=== PATIENT | female | born 1950 | race Caucasian/White ===

== ENCOUNTER 2017-02-10 17:16 | Inpatient (IN) | payer SELFPAY ==
[2017-02-10] MEDS ORDERED: HYDROmorphONE/DILAUDID 1 MG/ML SYR IVP ONE ×4 (18:35→21:43)
[2017-02-10] MEDS ORDERED: ONDANSETRON 4 MG/2 ML VIAL IVP ONE ×2 (18:35→19:21)
[2017-02-10 18:42] LABS: % IMMATURE GRANULYOCYTES 0.4 % (0.0-1.1); ABSOLUTE IMMATURE GRANULOCYTES 0.02 10^3/uL (0.00-0.10); ADD DIFF? NO; ADD MORPH? NO; ADD SCAN? NO; ATYPICAL LYMPHOCYTE FLAG 10 (0-99); FRAGMENT RBC FLAG 0 (0-99); HEMATOCRIT 44.6 % (38.0-47.0); HEMOGLOBIN 15.3 g/dL (12.6-16.3); LEFT SHIFT FLG 0 (0-99); LIPEMIA HEMOLYSIS FLAG 90 (0-99); MEAN CELL HEMOGLOBIN 32.2 pg (27.9-34.1); MEAN CELL HEMOGLOBIN CONCENTR. 34.3 g/dL (32.4-36.7); MEAN CELL VOLUME 93.9 fL (81.5-99.8); MEAN PLATELET VOLUME 8.7 fL (8.7-11.7); PLATELET CLUMPS FLAG 0 (0-99); PLATELET COUNT 589 10^3/uL (150-400); RED BLOOD CELL COUNT 4.75 10^6/uL (4.18-5.33); RED CELL DISTRIBUTION WIDTH 12.7 % (11.5-15.2)
[2017-02-10 18:51] LABS: ALANINE AMINOTRANSFERASE 23 IU/L (9-52); ALBUMIN 3.3 g/dL (3.5-5.0); ALKALINE PHOSPHATASE 136 IU/L (38-126); ANION GAP 13 mEq/L (8-16); ASPARTATE AMINOTRANSFERASE 25 IU/L (14-46); BILIRUBIN,TOTAL 0.4 mg/dL (0.1-1.4); BILIRUBIN-CONJUGATED 0.4 mg/dL (0.0-0.5); CALCIUM 9.1 mg/dL (8.5-10.4); CARBON DIOXIDE 25 mEq/l (22-31); CHLORIDE 99 mEq/L (97-110); CREATININE 0.7 mg/dL (0.6-1.0); GLOMERULAR FILTRATION RATE > 60; GLUCOSE 92 mg/dL (70-100); SODIUM 137 mEq/L (134-144); TOTAL PROTEIN 6.1 g/dL (6.3-8.2)
--- NOTE | 2017-02-10 19:02 | EDPHY ---
H & P Time Seen by Provider: 02/10/17 18:37 HPI/ROS: CHIEF COMPLAINT: Severe abdominal pain HISTORY OF PRESENT ILLNESS: This patient is a 66 year old female arriving with her daughters complaining of severe abdominal pain and distention. Onset of gradually worsening abdominal pain and distention over the last year. Initial evaluation for the abdominal pain was in an emergency department in her hometown of [place] 01/29/17. She had a CT scan at that time, suspicious for metastatic ovarian cancer. She was placed on Dilaudid for pain control. She is now in [place] under the care of Dr. Herrera, oncologist, and has seen him once. She has also visited a gynecologic oncologist, Dr. Edwards, for surgical consult, and is scheduled for a laparoscopic procedure 02/19/17. She has had markedly increased pain and distention over the past 72 hours, and has been unable to eat or drink due to vomiting. She has had multiple episodes of diarrhea as well, and inability to control her bowels. REVIEW OF SYSTEMS: Constitutional: No fever, no chills Eyes: No visual changes ENT: No sore throat Respiratory: No cough, no shortness of breath Cardiac: No chest pain Genitourinary: No hematuria, no dysuria Musculoskeletal: No leg pain or swelling Skin: No rash Neurological: No headache Psychiatric: Feels anxious Past Medical/Surgical History: Hypothyroidism Social History: Daughters at bedside. Lives in [place]. Smoking Status: Former smoker Physical Exam: General Appearance: Alert, appearsin pain Eyes: Pupils equal and round, no conjunctival pallor or injection ENT, Mouth: Mucous membranes moist Neck: Normal inspection Respiratory: Lungs are clear to auscultation Cardiovascular: Regular rate and rhythm Gastrointestinal: Tense ascites, diffuse abdominal tenderness Neurological: A&O, nonfocal exam Skin: Warm and dry, no rash Extremities: Nontender, no pedal edema Psychiatric: Mood and affect normal Constitutional: Initial Vital Signs Temperature (C) 36.7 C 02/10/17 17:33 Heart Rate 84 02/10/17 17:33 Respiratory Rate 16 02/10/17 17:33 Blood Pressure 134/78 H 02/10/17 17:33 O2 Sat (%) 93 02/10/17 17:33 O2 Delivery Mode Nasal Cannula O2 (L/minute) 2 Allergies/Adverse Reactions: Sulfa (Sulfonamide Antibiotics) Allergy (Verified 02/10/17 17:36) sulfamethoxazole [From Bactrim] Allergy (Verified 02/10/17 17:36) trimethoprim [From Bactrim] Allergy (Verified 02/10/17 17:36) Home Medications: Medication Instructions Recorded oxyCODONE/APAP 5/325 [Percocet 1 tab PO Q6H PRN 02/10/17 5/325 (*)] Medical Decision Making - Diagnostics Imaging Results: Imaging Impressions Abdomen CT 02/10/17 19:07 Impression: 1. Large volume abdominal and pelvic ascites. 2. Extensive mesenteric and pelvic wall metastatic implantation consistent with metastatic ovarian malignancy. There is a nodular right lower quadrant mass probably a large metastatic deposit. As clinically indicated, additional staging could be obtained with PET CT. 3. See above report for additional findings. Results called and discussed with Lona Armando M.D., on February 10, 2017 at 2044. E:amm Imaging: Discussed imaging studies w/ call specialist Radiologist ED Course/Re-evaluation: This patient presents with severe abdominal pain and newly diagnosed metastatic cancer. Likely ovarian cancer, though she has not had a tissue diagnosis. Given worsening abdominal pain, a repeat CT scan of the abdomen pelvis was ordered. Dilaudid 1 mg IV and Zofran 4 mg IV given. A repeat Dilaudid dose was given because of ongoing pain. After the 2nd mg Dilaudid, she feels much more comfortable. 20:[address] Sullivan, radiologist, regarding patient's CT. CT scan results discussed with the patient. She continues to feel better after IV Dilaudid. Will benefit from ultrasound-guided paracentesis for diagnostic and therapeutic purposes in the morning. 20:[address] Brown, hospitalist. He accepts admission for severe abdominal pain, metastatic cancer. Differential Diagnosis: The differential diagnosis for the patient's abdominal pain included but was not limited to metastatic ovarian cancer. - Data Points Laboratory Results: Laboratory Results 02/10/17 18:18 02/10/17 18:18 Medications Given: Discontinued Medications Hydromorphone HCl (Dilaudid) 1 mg IVP EDNOW ONE Stop: 02/10/17 18:36 Last Admin: 02/10/17 18:43 Dose: 1 mg Hydromorphone HCl (Dilaudid) 0.5 mg IVP EDNOW ONE Stop: 02/10/17 19:16 Last Admin: 02/10/17 19:21 Dose: 0.5 mg Hydromorphone HCl (Dilaudid) 0.5 mg IVP EDNOW ONE Stop: 02/10/17 20:04 Last Admin: 02/10/17 20:06 Dose: 0.5 mg Hydromorphone HCl (Dilaudid) 1 mg IVP EDNOW ONE Stop: 02/10/17 21:44 Last Admin: 02/10/17 21:50 Dose: 1 mg Hydromorphone HCl (Dilaudid) 0.2 - 0.4 mg IVP Q4HRS PRN PRN Reason: Pain, Severe Unable to Take PO Stop: 02/20/17 22:20 Last Admin: 02/10/17 22:38 Dose: 0.4 mg Ondansetron HCl (Zofran) 4 mg IVP EDNOW ONE Stop: 02/10/17 18:36 Last Admin: 02/10/17 18:42 Dose: 4 mg Ondansetron HCl (Zofran) 4 mg IVP EDNOW ONE Stop: 02/10/17 19:22 Last Admin: 02/10/17 19:23 Dose: 4 mg Departure - Departure Disposition: [facility] Inpatient Acute Clinical Impression: Metastatic cancer Abdominal pain Qualifiers: Abdominal location: generalized Qualified Code(s): R10.84 - Generalized abdominal pain Condition: Fair Report Scribed for: Lona Armando Report Scribed by: Yazmin Sanchez Date of Report: 02/10/17 Time of Report: 18:55 Physician Review and Approval Statement: 02/10/17 18:54 Portions of this note were transcribed by a medical record transcriber. I personally performed a history, physical exam, medical decision making, and confirmed accuracy of information the transcribed note.
[2017-02-10] MEDS ORDERED: ONDANSETRON 4 MG/2 ML VIAL ONE (19:20)
[2017-02-10] MEDS ORDERED: IOPAMIDOL (ISOVUE-300) 100 ML BTL ONE (19:25)
[2017-02-10] MEDS ORDERED: ACETAMINOPHEN 325 MG TAB PO PRN (22:21)
[2017-02-10] MEDS ORDERED: ONDANSETRON 4 MG/2 ML VIAL IVP PRN (22:21)
[2017-02-10] MEDS ORDERED: HYDROmorphONE/DILAUDID 1 MG/ML SYR IVP PRN (22:21)
[2017-02-10] MEDS ORDERED: PROMETHAZINE HCL 25 MG/ML INJ IVP PRN (22:21)
[2017-02-10] MEDS ORDERED: ONDANSETRON DISINTEGRATING 4 MG TAB PO PRN (22:21)
--- NOTE | 2017-02-10 23:15 | GHP ---
[f rep st] HISTORY AND PHYSICAL DATE OF ADMISSION: 02/10/2017 HISTORY OF PRESENT ILLNESS: The patient is a 66-year-old female, with a history of likely ovarian c ancer, who presents to the hospital with increasing abdominal pain and nausea. It sounds like she h as had ongoing abdominal pain for about a year. She had a colonoscopy in November, in [place] where she lives, which showed a polyp that was noncancerous. Abdominal pain continued and developed increasin g abdominal girth, and she had a CAT scan performed on January 29, showing imaging findings of typical peritoneal carcinomatosis, masslike appearance, to the omentum adjacent to hepatic and splenic flex ures, previous history of hysterectomy. She thought about what to do and was referred ultimately to [place] where she saw Dr. Herrera, who told her she likely had ovarian cancer. Further workup has been planned, but she presents tonight with worsening symptoms of abdominal pain, increasing abdomin al girth and distention, and some nausea and vomiting, poor p.o. intake. She has been vomiting as well. No melena. No bright red blood per rectum. REVIEW OF SYSTEMS: A complete 10-point review of systems conducted, negative except as noted in the HPI. PAST MEDICAL HISTORY: Really none, other than this ovarian cancer. ALLERGIES: Sulfa. SOCIAL HISTORY: She is a former tobacco smoker, but quit a few months ago. Drank alcohol heavily i n the past, but has not drunk in 7 years. Lives in [place]. FAMILY HISTORY: Negative for ovarian cancer. PHYSICAL EXAMINATION: VITAL SIGNS: Temperature 36.7, blood pressure 134/78, pulse 84, breathing at 16 times a minute, 93% on room air. GENERAL: No acute distress. HEENT: Sclerae anicteric. Orop harynx clear. Mucous membranes moist. NECK: Supple without lymphadenopathy or JVD. LUNGS: Clear to auscultation bilaterally. HEART: S1, S2. ABDOMEN: The patient has tense ascites and it is fi rm. Bowel sounds are hypoactive. There is no rebound or guarding. No Rubin sign. EXTREMITIES: Lower extremities without edema. Calves nontender. SKIN: Without rash. NEUROLOGIC: Nonfocal. LABORATORY DATA: White count 5, hematocrit 45, platelets are 589,000. Sodium 137, potassium 4.0, c hloride 99, bicarb 25, BUN 7, creatinine 0.7. LFTs normal. Lipase is normal. Abdominal CT reviewe d/interpreted by me, shows large amount of ascites. extensive mesenteric and pelvic wall metastatic implantation consistent with metastatic ovarian malignancy, nodular right lower quadrant mass. I have discussed the case with Vijay Fried PA-C and Dr. Rosen. ASSESSMENT/PLAN: This is a 66-year-old female, who presents with increasing abdominal girth that is consistent with ovarian cancer. 1. Ovarian cancer. The patient needs a tissue diagnosis. I have ordered a paracentesis cytology. There is a high rate of false positive, but if it is positive, it can help avoid further invasive p rocedures. There has been some discussion of her being referred to a surgeon. I will leave that to the discretion of Dr. Herrera. 2. Nausea, vomiting. We will add Phenergan and Zofran. 3. Pain. We will add some IV Dilaudid. She may be a candidate, when her nausea is improved, for l alex-acting narcotics. 4. Prophylaxis, high risk. Start low-molecular heparin. I have written for her start on the given the need for paracentesis tomorrow. DISPOSITION: Inpatient status. /[id number]/MODL
[2017-02-10 23:20] LABS: INR 0.95 (0.83-1.16); PROTIME(PATIENT) 12.6 SEC (12.0-15.0)
[2017-02-10] MEDS: oxyCODONE IR 5 MG TAB PO PRN (23:20)
[2017-02-11] MEDS ORDERED: NALOXONE HCL 0.4 MG/ML INJ IVP PRN (00:28)
[2017-02-11] MEDS: HYDROmorphONE/DILAUDID 6 MG/30 ML PCA IV PRN ×4 (02:42→23:02)
[2017-02-11] MEDS ORDERED: LIDOCAINE 1% 300 MG/30 ML SDV ONE (10:00)
[2017-02-11] MEDS ORDERED: ALBUMIN 25% 100 ML IV ONE (12:30)
[2017-02-11 13:03] LABS: GLUCOSE, PERITONEAL FLUID 102 mg/dL (55-113)
--- NOTE | 2017-02-11 16:04 | HOSPPROG ---
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 This is sent for cytology. I reviewed her case in detail with Dr. Pedro Kerr as well as with the patient and her daughter at the bedside. Patient has been referred to a gynecologic oncology surgeon in [place]. They have made plans to arrange for surgery, probably later this week but the date and time are still pending. At this point the patient remains on narcotic analgesics by ASSIGNMENT AGENT here. Will continue to treat her here and monitor to be sure she has no complications of her paracentesis. Will use DVT prophylaxis since and encourage ambulation. It is possible she may be able to discharge tomorrow or the next day and go home before surgery, however depending on how she progresses in the timing of her surgery she may require transfer from this hospital to the hospital where she will have surgery. I answered number of questions for the patient and her daughter to their satisfaction. PLANS: -continued management for now with ASSIGNMENT AGENT narcotic -encourage ambulation -diet as tolerated, antiemetics as needed -we are waiting to hear from her surgeon as to precisely when her surgery will be, will consider possible discharge home before surgery versus transfer to the operating hospital SUBJECTIVE: Notably less pain after her paracentesis but still has significant abdominal pain requiring narcotic OBJECTIVE Vitals reviewed: Stable without fever Exam: alert oriented skin warm dry color ok resps not labored lungs clear BSs heart regular abd soft less distended and with less tenderness, bowel sounds present, no peritoneal signs limbs warm, no edema iv site ok Objective: Vital Signs Temp Pulse Resp BP Pulse Ox 36.6 C 75 18 101/52 L 98 02/11/17 07:56 02/11/17 15:53 02/11/17 15:53 02/11/17 15:53 02/11/17 15:53 Microbiology 02/11/17 08:02 Gram Stain - Final Peritoneal Fluid - Aspirate 02/10/17 02/11/17 02/12/17 06:59 06:59 06:59 Intake Total 600 Output Total 500 Balance 100 PT 12.6 SEC (12.0-15.0) 02/10/17 22:56 INR 0.95 (0.83-1.16) 02/10/17 22:56 ICD10 Worksheet Patient Problems: Problems Problem Status Onset Abdominal pain Acute Metastatic cancer Acute
[2017-02-11] MEDS ORDERED: GOLYTELY 4000 ML BTL PO ONE (16:22)
[2017-02-11] MEDS ORDERED: NEOMYCIN SULF 500 MG TAB PO ONE ×3 (17:00→23:55)
--- NOTE | 2017-02-11 20:58 | GCON ---
[f rep st] CONSULTATION HISTORY OF PRESENT ILLNESS: The patient is a 66-year-old female, who has been having some abdominal symptoms for the last 4-5 months characterized by cramping abdominal distention. Colonoscopy showe d a polyp. She eventually presented to the emergency room in [place] at [facility] a couple of weeks ago, and a CT scan showed evidence of peritoneal carcinomatosis with a moderate amount of asci andre. There was nodular omental thickening, and mass-like appearance to the amantadine. There is a small sub cm pulmonary nodule noted. She was seen by my partner, Dr. Herrera, and it was felt to medley ve a presentation worrisome for ovarian carcinoma or perhaps a primary peritoneal malignancy. CEA w as normal at 2.01, and CA-125 was elevated at 2,290. She was referred to Dr. Keerthi Edwards, who s aw her last week, and is attempting to schedule her for exploration and debulking surgery. She, how ever, had increasing pain and presented to the ER here at [facility] last night. A CT scan s howed a large volume of abdominal and pelvic ascites. There was extensive mesenteric and pelvic wal l metastatic implantation consistent with metastatic ovarian malignancy. There is nodular right low er quadrant mass, probably a large metastatic deposit. She underwent a 4 L paracentesis this mornin g, and her pain is significantly better. PAST MEDICAL HISTORY: Generally unremarkable. She is a former smoker. Former fairly heavy alcohol user. FAMILY HISTORY: Noncontributory. REVIEW OF SYSTEMS: Otherwise, negative. PHYSICAL EXAM: GENERAL: She is a pleasant female. VITAL SIGNS: Blood pressure 94/45, heart rate 78, O2 saturation 98 on 3 L. HEENT: She is not icteric. I detect no adenopathy. LUNGS: Clear to auscultation and percussion. CARDIAC: Unremarkable. ABDOMEN: Normal bowel sounds with perhaps a slight fluid wave. EXTREMITIES: No edema. NEUROLOGIC: Nonfocal. LABORATORY DATA: White count 5,000, hemoglobin 15.3, hematocrit 44.6, platelets 589,000, alkaline p hosphatase 136, total protein 6.1, albumin 3.3. CA-125 last night was 1,970. IMPRESSION: The patient with abdominal carcinomatosis, presentation worrisome for ovarian malignanc y. She is better after 4 L paracentesis. PLAN: Surgical exploration and consideration of debulking. I discussed the case with Dr. Edwards , who is attempting to schedule her surgery for later this week, either 02/13 or Friday. She will contact me as to when she can schedule the surgery. We will probably be able to disch arge the patient assuming her pain is under good control. /[id number]/MODL
[2017-02-12] MEDS: HYDROmorphONE/DILAUDID 6 MG/30 ML PCA IV PRN (05:26)
--- NOTE | 2017-02-12 06:12 | PDDCSUM ---
Discharge Summary Discharge Summary: DISCHARGE DIAGNOSES: -abdominal pain caused by cancer -malignant peritioneal effusion -suspected metastatic ovarian carcinoma' PROCEDURES: -paracentesis of 4.7 L ascites fluid COMPLICATIONS: none HOSPITAL COURSE: This patient who has known malignant appearing peritoneal implants and ongiong abdominal pain had been referred to a gyencologic surgeon. However before her surgery could be done, she presented to our ER here with worsening abdominal pain and distension. She had large volume ascites with numerous peritioneal masses. She underwent paracentesis without complication lessening her pain but still required a QUALITY ASSOCIATE for pain management. We were in contact with her surgeon, and it was elected to discharge her so that she could go to her elective surgery at an outside hospital which was to occur in the early afternoon on the day of this discharge. She was in stable condition for discharge. She was felt to be stable medically for her planned laparoscopic surgery. Her daughter was to drive her to the outside hospital.
[2017-02-12 08:49] VITALS: BP 123/64; PULSE 81; RESP 18; TEMP 97.5; O2SAT 97
[2017-02-12] MEDS: oxyCODONE IR 5 MG TAB PO PRN (09:00)
[2017-02-12] MEDS ORDERED: ENOXAPARIN 40 MG/0.4 ML SYR SC SCH (09:00)
== END 2017-02-12 09:30 | disposition home or self-care (01) | DRG 755 ==
LOC: F1N 22:16
PROVIDERS: ADMIT Internal Medicine; ATTEND Internal Medicine
PROC: 0W9G3ZX Drainage of Peritoneal Cavity, Percutaneous Approach, Diagnostic (ICD-10-PCS; principal; 2017-02-11)
DX: C56.9 Malignant neoplasm of unspecified ovary (principal); C78.6 Secondary malignant neoplasm of retroperitoneum and peritoneum; C79.89 Secondary malignant neoplasm of other specified sites; Z87.891 Personal history of nicotine dependence
CPT/HCPCS: 86301-90; 86304-90; 96374; J1170; J2405; J2550; P9047; Q9967

== ENCOUNTER 2017-08-02 16:11 | Emergency (ER) | payer OTHER ==
[2017-08-02 16:19] VITALS: TEMP 97.7
--- NOTE | 2017-08-02 16:34 | EDPHY ---
H & P Stated Complaint: RUQ painx 2 days;sched for surgery Thurs (oophrectomies) HPI/ROS: CHIEF COMPLAINT: Abdominal pain HISTORY OF PRESENT ILLNESS: This patient is a 67 year old female with history of metastatic ovarian cancer , diagnosed last year, complaining of right-sided upper abdominal pain. One month ago, she completed a course of six chemotherapy treatments. She is scheduled to undergo a bilateral oophorectomy next week with Dr. Millan in [place]. Yesterday, she woke up with right-sided upper abdominal pain. She visited a friend's house to go for a walk but her pain increased, preventing her from completing her regular activities. She states it "feels likes somebody may have stabbed me, but there is no wound". She endorses nausea for the past week, which she states is unusual as she did not have this after her chemotherapy was completed. She was able to eat today, and eating does not make her discomfort better or worse. She denies fever, diarrhea, or dysuria. Her last bowel movement was yesterday and was normal, no blood. At a prior admission here in January,, she underwent paracentesis of ascitic fluid. She does not think that she has had reaccumulation of fluid. She has been short of breath since chemotherapy began, but no changes with current symptoms. She denies sore throat, cough, recent illness, or other associated symptoms. REVIEW OF SYSTEMS: A ten point review of systems was performed and is negative with the exception of the items mentioned in the HPI. Past medical history: Ovarian cancer. Past surgical history: Hysterectomy. Family history: Noncontributory. Social history: Current tobacco use, 1/2 pack per day. Occasional alcohol use. General Appearance: Alert. Vital signs reviewed. Eyes: Pupils equal and round, no conjunctival injection, no discharge. Anicteric. ENT, Mouth: Mucous membranes are moist, no oropharyngeal erythema or edema. Neck: No lymphadenopathy, supple. Respiratory: Lungs are clear to auscultation; no wheezes, rales, or rhonchi. Cardiovascular: Regular rate and rhythm; no murmur, rub, or gallop. Gastrointestinal: Left lower quadrant, right upper quadrant, and midepigastric tenderness. No guarding. Abdomen is soft, no masses or organomegaly, bowel sounds normal. Skin: Warm and dry, no rashes on exposed skin, normal color. Back: Nontender to palpation over the thoracolumbar spine. No CVAT. Extremities: No lower extremity edema, no calf tenderness or swelling. Neurological: Alert and oriented. Moving all four extremities easily and equally. Psychiatric: Normal affect. - Personal History Current Tetanus Diphtheria and Acellular Pertussis (TDAP): Yes - Medical/Surgical History Hx Asthma: No Hx Chronic Respiratory Disease: No Hx Diabetes: No Hx Cardiac Disease: No Hx Renal Disease: No Hx Cirrhosis: No Hx Alcoholism: Yes Hx HIV/AIDS: No Hx Splenectomy or Spleen Trauma: No Other PMH: abdominal tumors,. hypothyroid, alcoholism, fibromyalgia - Social History Smoking Status: Former smoker Constitutional: Initial Vital Signs Temperature (C) 36.5 C 08/02/17 16:16 Heart Rate 76 08/02/17 16:16 Respiratory Rate 18 08/02/17 16:16 Blood Pressure 122/74 H 08/02/17 16:16 O2 Sat (%) 97 08/02/17 16:16 O2 Delivery Mode Room Air Allergies/Adverse Reactions: Sulfa (Sulfonamide Antibiotics) Allergy (Intermediate, Verified 08/02/17 16:20) rash,swelling sulfamethoxazole [From Bactrim] Allergy (Intermediate, Verified 08/02/17 16:20) rash,swelling trimethoprim [From Bactrim] Allergy (Verified 08/02/17 16:20) rash,swelling Home Medications: Medication Instructions Recorded Escitalopram Oxalate [Lexapro] 10 mg PO 08/02/17 Levothyroxine [Synthroid 88 mcg 88 mcg PO DAILY06 08/02/17 (*)] clonazePAM [Klonopin (*)] 0.5 mg PO 08/02/17 traZODone [traZODONE 50MG (*)] 50 mg PO HS 08/02/17 Medical Decision Making - Diagnostics Imaging: Discussed imaging studies w/ body recall instructor Radiologist ED Course/Re-evaluation: 67 year old female with history of metastatic ovarian cancer presents with right upper quadrant abdominal pain onset yesterday. Exam reveals left lower quadrant, right upper quadrant, and midepigastric tenderness. Plan for US abdomen to assess gallbladder. Plan for labs including CBC, BMP, liver, lipase, UA. Plan to administer 75mcg Fentanyl for pain relief. Reviewed laboratory studies. Liver, pancreas, gallbladder labs within normal limits with the exception of very slight elevation of her AST of 53.. Low WBC at 3.24. Administered an additional 75mcg Fentanyl. 18:[address] Stark, radiologist. US abdomen negative for acute process including cholecystitis. There is a trace of free fluid near the gallbladder. 18:54 Reassessed patient. Discussed US and laboratory results. She continues to feel pain in her right upper quadrant. When I press in her lower left quadrant, she continues to feel tender and states the pain radiates up towards her epigastric region. Discussed risks and benefits of CT for further evaluation. She states she had a CT three weeks ago at [facility]. She is aware of mesenteric seeding that has been seen on that CT scan. She denies history of reflux or ulcers. Plan to administer 0.5mg IV Dilaudid for symptom relief. The patient agrees to proceed with CT for further evaluation. Reviewed CT report from 07/02/17. 20:[address] Stark, radiologist. CT abdomen/pelvis shows nodular mesenteric masses similar from her study 07/02/17. No significant ascites. 20:15 Reassessed patient. Discussed imaging results. Plan to discharge home in good condition. She will proceed with her surgery next as scheduled. She discontinued her hydrocodone three days ago, and will resume this for pain control. She understands that the etiology of her pain has not been discovered. She will follow up with her oncologist, Dr. Herrera, or her surgeon , Dr. Millan, for further evaluation. Return precautions discussed. She is comfortable with this plan. Differential Diagnosis: Abdominal pain including but not limited to SBO, tumor progression, appendicitis , cholecystitis, gastritis/peptic ulcer disease, ureterolithiasis, and urinary tract infection. - Data Points Laboratory Results: Laboratory Results 08/02/17 16:40 08/02/17 16:40 Medications Given: Discontinued Medications Hydrocodone Bitart/Acetaminophen ([place]n 5/325mg Prepack#6) 1 btl TAKEHOME EDNOW ONE Stop: 08/02/17 20:20 Last Admin: 08/02/17 20:24 Dose: 1 btl Fentanyl (Sublimaze) 75 mcg IVP EDNOW ONE Stop: 08/02/17 16:54 Last Admin: 08/02/17 17:07 Dose: 75 mcg Fentanyl (Sublimaze) 75 mcg IVP EDNOW ONE Stop: 08/02/17 18:03 Last Admin: 08/02/17 18:09 Dose: 75 mcg Hydromorphone HCl (Dilaudid) 0.5 mg IVP EDNOW ONE Stop: 08/02/17 19:15 Last Admin: 08/02/17 19:23 Dose: 0.5 mg Departure - Departure Disposition: Home, Routine, Self-Care Clinical Impression: Abdominal pain Qualifiers: Abdominal location: upper abdomen, unspecified Qualified Code(s): R10.10 - Upper abdominal pain, unspecified Condition: Good Instructions: Abdominal Pain (ED) Additional Instructions: 1. Resume taking Hydrocodone as we discussed. 2. Follow up with your oncologist for further evaluation. 3. Return to the emergency department for uncontrollable pain, fever, intractable vomiting, or other worsening of condition. Referrals: Rome Herrera MD [Medical Doctor] - As per Instructions Report Scribed for: Sidra Hill Report Scribed by: Yazmin Sanchez Date of Report: 08/02/17 Time of Report: 18:25 Physician Review and Approval Statement: 08/02/17 16:34 Portions of this note were transcribed by the medical consultant. I, Dr. Sidra Hill, personally performed the history, physical exam, and medical decision- making; and confirmed the accuracy of the information in the transcribed note.
[2017-08-02] MEDS ORDERED: fentaNYL 100 MCG/2 ML INJ IVP ONE ×2 (16:53→18:02)
[2017-08-02 16:58] LABS: PLATELET COUNT 219 10^3/uL (150-400)
[2017-08-02 17:44] VITALS: RESP 16
[2017-08-02] MEDS ORDERED: HYDROmorphONE/DILAUDID 1 MG/ML INJ IVP ONE (19:14)
[2017-08-02] MEDS ORDERED: IOPAMIDOL (ISOVUE-300) 100 ML BTL ONE (19:21)
[2017-08-02] MEDS ORDERED: HYDROCOD/APAP 5/325 PREPACK#6 BTL TAKEHOME ONE (20:19)
[2017-08-02 20:28] VITALS: BP 116/61; PULSE 57; O2SAT 99
== END 2017-08-02 20:28 | disposition home or self-care (01) ==
DX: R10.11 Right upper quadrant pain (principal); Z85.43 Personal history of malignant neoplasm of ovary; Z90.710 Acquired absence of both cervix and uterus; Z87.891 Personal history of nicotine dependence
CPT/HCPCS: 74177; 76705; 96374; 96375; 99285; J1170; J3010; Q9967

== ENCOUNTER → 2017-10-23 | Outpatient (CLI) | payer OTHER | LOC: FIMAGING 16:10 | PROVIDERS: ATTEND Nurse Practitioner | DX: R79.89 Other specified abnormal findings of blood chemistry (principal); N28.1 Cyst of kidney, acquired; C56.9 Malignant neoplasm of unspecified ovary; Z92.21 Personal history of antineoplastic chemotherapy ==

== ENCOUNTER 2018-04-17 05:48 | Observation (INO) | payer OTHER ==
[2018-04-17] MEDS ORDERED: ceFAZolin 2 GM/DEXTROSE 100 ML IV ONE (06:02)
[2018-04-17] MEDS ORDERED: LR 1,000 ML IV ONE (06:03)
[2018-04-17] MEDS ORDERED: LIDOCAINE 1% 2 ML INJ ID PRN (06:03)
--- NOTE | 2018-04-17 06:49 | PDANEPAE ---
ANE History of Present Illness open ventral hernia repair ANE Past Medical History - Cardiovascular History Hx Hypertension: No Hx Arrhythmias: No Hx Chest Pain: No Hx Coronary Artery / Peripheral Vascular Disease: No Hx CHF / Valvular Disease: No Hx Palpitations: No - Pulmonary History Hx COPD: No Hx Asthma/Reactive Airway Disease: No Hx Recent Upper Respiratory Infection: No Hx Oxygen in Use at Home: No Hx Sleep Apnea: No Sleep Apnea Screening Result - Last Documented: Negative - Neurologic History Hx Cerebrovascular Accident: No Hx Seizures: No Hx Dementia: No Neurologic History Comment: PERIPHERAL NEUROPATHY - Endocrine History Hx Diabetes: No Endocrine History Comment: HYPOTHYROID - Renal History Hx Renal Disorders: Yes Renal History Comment: UNK KIDNEY CONDITION - 2-3 MOS AGO IN HOSP X 7 DAYS IN [facility] - WAS ON CHEMO AT THE TIME AND H&P FROM [facility] STATES ACUTE RENAL INSUFFICIENCY - Liver History Hx Hepatic Disorders: No - Neurological & Psychiatric Hx Hx Neurological and Psychiatric Disorders: Yes Neurological / Psychiatric History Comment: ANXIETY/DEPRESSION - Cancer History Hx Cancer: Yes Cancer History Comment: OVARIAN CA - Congenital Disorder History Hx Congenital Disorders: No - GI History GERD: no Hx Gastrointestinal Disorders: No - Other Health History Other Health History: ANEMIA WITH CHEMO - ORAL CHEMO UNTIL 04/05/18 - Chronic Pain History Chronic Pain: No - Surgical History Prior Surgeries: HYSTERECTOMY/BSO. OOPHERECTOMY ANE Review of Systems Review of Systems: - Exercise capacity METS (RN): 4 METS ANE Patient History - Allergies Allergies/Adverse Reactions: Sulfa (Sulfonamide Antibiotics) Allergy (Intermediate, Verified 08/02/17 16:20) rash,swelling sulfamethoxazole [From Bactrim] Allergy (Intermediate, Verified 08/02/17 16:20) rash,swelling trimethoprim [From Bactrim] Allergy (Verified 08/02/17 16:20) rash,swelling - Home Medications Home medications: home medication list seen and reviewed Home Medications: Escitalopram Oxalate [Lexapro] 10 mg PO 08/02/17 [Last Taken 04/16/18 09:00] Levothyroxine [Synthroid 88 mcg (*)] 88 mcg PO DAILY06 08/02/17 [Last Taken 09:00] clonazePAM [Klonopin (*)] 0.5 mg PO 08/02/17 [Last Taken 04/16/18 21:00] traZODone [traZODONE 50MG (*)] 50 mg PO HS 08/02/17 [Last Taken 04/16/18 21:00] Fentanyl 04/17/18 [Last Taken 04/13/18] - NPO status NPO Since - Liquids (Date): 04/17/18 NPO Since - Liquids (Time): 05:00 NPO Since - Solids (Date): 04/16/18 NPO Since - Solids (Time): 18:00 - Anes Hx Anes Hx: no prior problems - Smoking Hx Smoking Status: Former smoker - Family Anes Hx Family Hx Anesthesia Complications: NEG ANE Labs/Vital Signs - Vital Signs Height: 165.1 cm Weight: 54.431 kg ANE Physical Exam - Airway Neck exam: FROM Mallampati Score: Class 1 Mouth exam: normal dental/mouth exam - Pulmonary Pulmonary: no respiratory distress - Cardiovascular Cardiovascular: regular rate and rhythym - ASA Status ASA Status: II ANE Anesthesia Plan Anesthesia Plan: general endotracheal anesthesia
[2018-04-17] MEDS ORDERED: PROPOFOL 200 MG/20 ML VIAL ONE (07:00)
[2018-04-17] MEDS ORDERED: fentaNYL 100 MCG/2 ML INJ ONE ×3 (07:00→08:59)
[2018-04-17] MEDS ORDERED: MIDAZOLAM 2 MG/2 ML VIAL IVP ONE (07:04)
--- NOTE | 2018-04-17 07:06 | PDHPUP ---
History & Physical Update H&P update statement: This history and physical update is based on an assessment of the patient which was completed after admission or registration (within 24 hours), but prior to the surgery/procedure. H&P update: H&P reviewed & patient examined, no change in patient's condition since H&P completed
[2018-04-17] MEDS ORDERED: ONDANSETRON 4 MG/2 ML VIAL ONE (07:08)
[2018-04-17] MEDS ORDERED: DEXAMETHASONE 4 MG/ML VIAL ONE (07:08)
[2018-04-17] MEDS ORDERED: LIDOCAINE 2% 2 ML INJ ONE (07:08)
[2018-04-17] MEDS ORDERED: ROCURONIUM 50 MG/5 ML VIAL ONE ×2 (07:08→08:09)
[2018-04-17] MEDS ORDERED: HYDROmorphONE/DILAUDID 2 MG/ML INJ ONE ×3 (07:09→10:31)
[2018-04-17] MEDS ORDERED: MIDAZOLAM 2 MG/2 ML VIAL ONE (07:10)
[2018-04-17] MEDS ORDERED: BUPIVACAINE 0.5% 30 ML SDV ONE (07:11)
--- NOTE | 2018-04-17 07:12 | POSTANESTH ---
Post Anesthetic Evaluation Cardiovascular Status: Normal, Stable Respiratory Status: Normal, Stable Level of Consciousness/Mental Status: Can Participate in Eval, Alert and Oriented Pain Control: Adequate, Prn Tx Ordered Nausea/Vomiting Control: Adequate, Prn Tx Ordered Complications Possibly Related to Anesthesia: None Noted
[2018-04-17] MEDS ORDERED: NEOSTIGMINE METHYLSULFATE 5 MG/5 ML SYR ONE (08:12)
[2018-04-17] MEDS ORDERED: GLYCOPYRROLATE 0.2 MG/1 ML VIAL ONE (08:12)
[2018-04-17] MEDS ORDERED: ALBUTEROL 3 ML DEYVIAL IH PRN (08:19)
[2018-04-17] MEDS ORDERED: METOCLOPRAMIDE 10 MG/2 ML VIAL IVP PRN (08:19)
[2018-04-17] MEDS ORDERED: ACETAMINOPHEN 500 MG TAB PO PRN (08:19)
[2018-04-17] MEDS ORDERED: LR 500 ML IV PRN (08:19)
[2018-04-17] MEDS ORDERED: PROMETHAZINE HCL 25 MG/ML INJ IVP PRN (08:19)
[2018-04-17] MEDS ORDERED: HYDROCODONE/APAP 5/325 TAB PO PRN (08:19)
[2018-04-17] MEDS ORDERED: NALOXONE HCL 0.4 MG/ML INJ IVP PRN (08:19)
[2018-04-17] MEDS ORDERED: oxyCODONE IR 5 MG TAB PO PRN (08:19)
[2018-04-17] MEDS ORDERED: ONDANSETRON 4 MG/2 ML VIAL IVP PRN ×2 (08:19→08:50)
[2018-04-17] MEDS ORDERED: SUGAMMADEX SODIUM 200 MG/2 ML VIAL IVP ONE (08:20)
[2018-04-17] MEDS ORDERED: KETOROLAC 30 MG/1 ML SDV ONE (08:22)
[2018-04-17] MEDS ORDERED: THROMBIN (BOVINE) 5,000 UNIT VIAL TP ONE (08:25)
--- NOTE | 2018-04-17 08:47 | POSTOPPROG ---
Post Op Note Date of Operation: 04/17/18 Surgeon: Zayda Martinez Custom Van Converter: ines Anesthesiologist: omid Anesthesia: GET(General Endotracheal) Pre-op Diagnosis: ventral hernia Post-op Diagnosis: same Indication: 67 yo completed chemo and has ventral hernia Procedure: removal 2 abdominal wall ports and ventral hernia repair with mesh Findings: hernia Inf/Abcess present in the surg proc area at time of surgery?: No EBL: Minimal Specimen(s): none
[2018-04-17] MEDS ORDERED: ONDANSETRON DISINTEGRATING 4 MG TAB PO PRN (08:50)
[2018-04-17] MEDS: fentaNYL 100 MCG/2 ML INJ IVP PRN ×2 (09:02→09:10)
[2018-04-17] MEDS: HYDROmorphONE/DILAUDID 2 MG/ML INJ IVP PRN ×5 (09:05→10:32)
--- NOTE | 2018-04-17 09:12 | GOP ---
DATE OF OPERATION: 04/17/2018 SURGEON: Zayda Martinez MD RESIDENTIAL FRAMING CARPENTER: Danyell Reddy PA-C. ANESTHESIA: General. ANESTHESIOLOGIST: Magnus Cutler MD. PREOPERATIVE DIAGNOSIS: 1. Ovarian cancer. 2. Ventral hernia. POSTOPERATIVE DIAGNOSIS: 1. Ovarian cancer. 2. Ventral hernia. PROCEDURE PERFORMED: 1. Removal of tunneled chest wall port. 2. Removal of tunneled abdominal port. 3. Ventral hernia repair with mesh. FINDINGS: Hernia superior to umbilicus. SPECIMENS: None. ESTIMATED BLOOD LOSS: 10 cc. INDICATIONS: The patient is a 67-year-old who has completed chemotherapy. She presents for removal of her ports and ventral hernia repair. DESCRIPTION OF PROCEDURE: The patient was brought into the operating room, placed supine on the table, and general anesthesia was administered. Her abdomen was prepped and draped in the usual sterile fashion. I infiltrated all sites with 0.5% Marcaine prior to making the incisions. I made an incision across her chest wall and dissected down beyond the level of the port. I dissected the port free of investing tissues. I removed the port. Hemostasis was achieved in the cavity. It was closed with 3-0 Vicryl, followed by 4-0 Monocryl. In a similar fashion, I removed the port in the right upper quadrant of the abdomen. I also sutured the defect closed where the catheter was entering the abdomen. I closed the pocket with 3-0 Vicryl, followed by 4-0 Monocryl. Finally, I made an incision above her umbilicus. I dissected down sharply, as her skin was thin and the hernia was very superficial. I immediately encountered the hernia sac and was carefully able to dissect this free of the surrounding tissue. I excised the sac from the fascia. I then could create a retrorectus space in order to perform the repair. Once all the bowel was freed from below the incision, as well as above, I created the flaps. I then sutured the posterior fascia together with 0 PDS. I placed a piece of ProGrip mesh in the retrorectus space and tacked this down with 0 Surgilon. I then closed the anterior fascia with 0 PDS. I excised skin and closed her skin with 3-0 Vicryl, followed by 4-0 Monocryl. Mastisol, Steri-Strips, and sterile dressings applied to the ventral hernia site , and Dermabond applied to the port sites. She was awakened in the operating room, extubated, and transferred to the PACU in stable condition. /[id number]/MODL MTDD
[2018-04-17] MEDS: LORazepam 0.5 MG TAB PO PRN ×2 (12:56→19:51)
[2018-04-17] MEDS ORDERED: IBUPROFEN 600 MG TAB PO PRN (14:00)
[2018-04-17] MEDS: OXYCODONE/APAP 5/325 TAB PO PRN ×2 (15:20→19:46)
[2018-04-17] MEDS ORDERED: fentaNYL 75 MCG PATCH TD SCH (16:15)
[2018-04-17] MEDS: HYDROmorphONE/DILAUDID 2 MG TAB PO PRN ×2 (17:00→22:25)
[2018-04-17] MEDS ORDERED: traZODone 50 MG TAB PO SCH (21:00)
[2018-04-17] MEDS: clonazePAM 0.5 MG TAB PO SCH (22:19)
[2018-04-18] MEDS: HYDROmorphONE/DILAUDID 2 MG TAB PO PRN ×3 (04:39→13:12)
[2018-04-18] MEDS ORDERED: LEVOTHYROXINE 88 MCG TAB PO SCH (06:00)
[2018-04-18] MEDS ORDERED: ESCITALOPRAM OXALATE 10 MG TAB PO SCH (09:00)
[2018-04-18] MEDS: OXYCODONE/APAP 5/325 TAB PO PRN (09:15)
--- NOTE | 2018-04-18 10:44 | SOAPPROG ---
SOJAVED Progress Note Assessment/Plan: Assessment: - Ovarian CA - currently in remission maintained on Zejula 100mg PO q day - incisional hernia - s/p repair Plan: Continue Zejula when taking PO well F/U with me in a few weeks as an outpatient as planned Subjective: Feels good. Taking PO. Feels ready to go home Objective: Vital Signs Temp Pulse Resp BP Pulse Ox 37.0 C 65 12 103/50 L 98 04/18/18 08:00 04/18/18 08:00 04/18/18 08:00 04/18/18 08:00 04/18/18 08:00 04/16/18 04/17/18 04/18/18 23:59 23:59 23:59 Intake Total 1850 100 Output Total 910 1600 Balance 940 -1500 Physical Exam - Physical Exam General Appearance: alert, no apparent distress Respiratory: lungs clear Cardiac/Chest: regular rate, rhythm Abdomen: normal bowel sounds, non-tender, soft Skin: warm/dry Neuro/Psych: normal mood/affect, oriented x 3 ICD10 Worksheet Patient Problems: Problems Problem Status Onset ESBL (extended spectrum beta-lactamase) producing bacteria infection Acute ~ Metastatic cancer Acute
--- NOTE | 2018-04-18 12:16 | ASMTCMCOM ---
CM Note CM Note Notes: Spoke w/RN, pt admitted for scheduled surgery for a hernia. Anticipate pt will dc home independent when medically stable. CM available for any changes. DC Plan: Independent Date Signed: 04/18/2018 12:16 PM Electronically Signed By:Madison Siddiqui RN
[2018-04-18 12:36] VITALS: BP 131/53
--- NOTE | 2018-04-18 13:18 | SOAPPROG ---
SOAP Progress Note Assessment/Plan: Assessment: wounds ok/ afebrile/ tolerating po/ + flatus Plan:home 04/18/18 13:17 Objective: Vital Signs Temp Pulse Resp BP Pulse Ox 36.9 C 71 16 131/53 H 95 04/18/18 11:51 04/18/18 11:51 04/18/18 11:51 04/18/18 11:51 04/18/18 11:51 04/17/18 04/18/18 04/19/18 05:59 05:59 05:59 Intake Total 1950 Output Total 1810 1100 Balance 140 -1100 ICD10 Worksheet Patient Problems: Problems Problem Status Onset ESBL (extended spectrum beta-lactamase) producing bacteria infection Acute ~ Metastatic cancer Acute
[2018-04-18] MEDS: clonazePAM 0.5 MG TAB PO SCH (13:36)
--- NOTE | 2018-04-22 11:42 | GDS ---
DATE OF ADMISSION: 04/17/18 DATE OF DISCHARGE: 04/18/18 ADMITTING DIAGNOSIS: Ventral hernia. SECONDARY DIAGNOSIS: Ovarian cancer. REASON FOR ADMISSION: A 67-year-old woman who developed a symptomatic ventral hernia. She presented for surgical repair, observation, and pain control. In addition, she had a right lower quadrant abdominal port and a left chest port for chemotherapy which were ready to be removed. HOSPITAL COURSE: She was taken to the operating room on 04/17/2018, by Dr. Zayda Martinez for open ventral hernia repair with mesh, removal of abdominal wall port and left chest port. She was kept overnight for observation for pain control. On postoperative day #1, her pain was controlled with oral pain medication, tolerating regular diet, passing flatus, and was ready for discharge home. CONDITION: being discharged home in stable condition. Pain controlled, tolerating regular diet, ambulating independently. DISCHARGE MEDICATIONS: No prescriptions. Instructed to resume home medications. Please see EMR for further detail. DISCHARGE INSTRUCTIONS AND FOLLOWUP: Follow up with Dr. Martinez in 2 weeks for routine postop check. May remove dressing in 24 hours and shower. Avoid heavy lifting, pushing, or pulling greater than 15 pounds for 6 weeks. Call with any worsening symptoms, questions, or concerns. /[id number]/MODL MTDD
== END 2018-04-18 14:50 | disposition home or self-care (01) ==
LOC: FSGY 05:48 → F3E 08:48
PROVIDERS: ADMIT Surgery; ATTEND Surgery
DX: K43.9 Ventral hernia without obstruction or gangrene (principal); Z85.43 Personal history of malignant neoplasm of ovary; Z95.828 Presence of other vascular implants and grafts; G62.9 Polyneuropathy, unspecified; E03.9 Hypothyroidism, unspecified
CPT/HCPCS: 36590; 49560; C1781; J0690; J1100; J1170; J1885; J2250; J2270; J2405; J2704; J3010; J2710

== ENCOUNTER 2018-11-03 09:26 | Day surgery (SDC) | payer OTHER ==
[2018-11-03] MEDS ORDERED: BACITRACIN ZINC 0.5 OZ OINTTUBE TP ONE (09:32)
[2018-11-03] MEDS ORDERED: BUPIVACAINE 0.5% 30 ML SDV ONE (09:33)
[2018-11-03] MEDS ORDERED: ceFAZolin 2 GM/DEXTROSE 100 ML IV ONE (09:45)
[2018-11-03] MEDS ORDERED: LR 1,000 ML IV ONE (09:46)
[2018-11-03] MEDS ORDERED: MIDAZOLAM 2 MG/2 ML VIAL IVP ONE (10:31)
[2018-11-03] MEDS ORDERED: LR 500 ML IV PRN (10:33)
[2018-11-03] MEDS ORDERED: NALOXONE HCL 0.4 MG/ML INJ IVP PRN (10:33)
[2018-11-03] MEDS ORDERED: PROMETHAZINE HCL 25 MG/ML INJ IVP PRN (10:33)
[2018-11-03] MEDS ORDERED: oxyCODONE IR 5 MG TAB PO PRN (10:33)
[2018-11-03] MEDS ORDERED: ONDANSETRON 4 MG/2 ML VIAL IVP PRN (10:33)
[2018-11-03] MEDS ORDERED: DIAZEPAM 5 MG/ML 1 ML SYR IVP PRN (10:33)
[2018-11-03] MEDS ORDERED: ACETAMINOPHEN 500 MG TAB PO PRN (10:33)
[2018-11-03] MEDS ORDERED: HYDROCODONE/APAP 5/325 TAB PO PRN (10:33)
--- NOTE | 2018-11-03 10:33 | PDANEPAE ---
ANE Past Medical History - Cardiovascular History Hx Hypertension: No Hx Arrhythmias: No Hx Chest Pain: No Hx Coronary Artery / Peripheral Vascular Disease: No Hx CHF / Valvular Disease: No Hx Palpitations: No Cardiovascular History Comment: BP runs low - Pulmonary History Hx COPD: No Hx Asthma/Reactive Airway Disease: No Hx Recent Upper Respiratory Infection: No Hx Oxygen in Use at Home: No Hx Sleep Apnea: No Sleep Apnea Screening Result - Last Documented: Negative - Neurologic History Hx Cerebrovascular Accident: No Hx Seizures: No Hx Dementia: No Neurologic History Comment: PERIPHERAL NEUROPATHY - Endocrine History Hx Diabetes: No Obesity: no Endocrine History Comment: HYPOTHYROID - Renal History Hx Renal Disorders: Yes Renal History Comment: ACUTE RENAL INSUFFICIENCY - DUE TO CHEMO - NOW IMPROVED - Liver History Hx Hepatic Disorders: No - Neurological & Psychiatric Hx Hx Neurological and Psychiatric Disorders: Yes Neurological / Psychiatric History Comment: ANXIETY/DEPRESSION - Cancer History Hx Cancer: Yes Cancer History Comment: OVARIAN CA. LYMPH NODES - Congenital Disorder History Hx Congenital Disorders: No - GI History GERD: no Hx Gastrointestinal Disorders: No - Other Health History Other Health History: ANEMIA WITH CHEMO. FIBROMYALGIA. AFOGNAK. cataract sx bilat - Chronic Pain History Chronic Pain: Yes (FEET, HANDS & GENERALIZED) - Surgical History Prior Surgeries: HYSTERECTOMY. OOPHERECTOMY ANE Review of Systems Review of Systems: - Exercise capacity METS (RN): 4 METS ANE Patient History - Allergies Allergies/Adverse Reactions: Sulfa (Sulfonamide Antibiotics) Allergy (Intermediate, Verified 11/02/18 18:00) rash,swelling sulfamethoxazole [From Bactrim] Allergy (Intermediate, Verified 11/02/18 18:00) rash,swelling trimethoprim [From Bactrim] Allergy (Verified 11/02/18 18:00) rash,swelling - Home Medications Home medications: home medication list seen and reviewed Home Medications: Escitalopram Oxalate [Lexapro] 08/02/17 [Last Taken 11/03/18] Levothyroxine [Synthroid 88 mcg (*)] 08/02/17 [Last Taken 11/03/18] clonazePAM [Klonopin (*)] 08/02/17 [Last Taken 11/01/18] traZODone [traZODONE 50MG (*)] 08/02/17 [Last Taken 11/02/18] Herbals/Supplements -Info Only 10/26/18 [Last Taken 10/27/18] Hydrocodone-Acetamin 5-325 mg 10/26/18 [Last Taken 11/02/18] - NPO status NPO Status: no food or drink >8 hours NPO Since - Liquids (Date): 11/03/18 NPO Since - Liquids (Time): 07:30 NPO Since - Solids (Date): 11/02/18 NPO Since - Solids (Time): 14:30 - Anes Hx Anes Hx: no prior problems - Smoking Hx Smoking Status: Former smoker - Family Anes Hx Family Hx Anesthesia Complications: none ANE Labs/Vital Signs - Vital Signs Blood Pressure: 98/51 Heart Rate: 67 Respiratory Rate: 18 O2 Sat (%): 95 Height: 165.1 cm Weight: 61.235 kg ANE Physical Exam - Airway Neck exam: FROM Mallampati Score: Class 1 Mouth exam: normal dental/mouth exam - Pulmonary Pulmonary: no respiratory distress, no rales or rhonchi, clear to auscultation - Cardiovascular Cardiovascular: regular rate and rhythym, no murmur, rub, or gallop - ASA Status ASA Status: III ANE Anesthesia Plan Anesthesia Plan: MAC
--- NOTE | 2018-11-03 10:53 | PDHPUP ---
History & Physical Update H&P update statement: This history and physical update is based on an assessment of the patient which was completed after admission or registration (within 24 hours), but prior to the surgery/procedure. H&P update: H&P reviewed & patient examined, no change in patient's condition since H&P completed (cold resolved)
[2018-11-03] MEDS ORDERED: fentaNYL 100 MCG/2 ML INJ ONE ×2 (11:00→11:51)
[2018-11-03] MEDS ORDERED: PROPOFOL 200 MG/20 ML VIAL ONE (11:00)
--- NOTE | 2018-11-03 11:48 | POSTANESTH ---
Post Anesthetic Evaluation Cardiovascular Status: Normal, Stable, Similar to Pre-Op Cond Respiratory Status: Normal, Stable, Similar to Pre-op Cond. Level of Consciousness/Mental Status: Can Participate in Eval, Mildly Sleepy, Arousable Pain Control: Adequate, Prn Tx Ordered Nausea/Vomiting Control: Adequate, Prn Tx Ordered Complications Possibly Related to Anesthesia: None Noted
[2018-11-03] MEDS: fentaNYL 100 MCG/2 ML INJ IVP PRN ×3 (11:55→12:44)
[2018-11-03] MEDS ORDERED: oxyCODONE IR 5 MG TAB ONE (13:02)
[2018-11-03 13:12] VITALS: BP 117/64
== END 2018-11-03 13:26 | disposition home or self-care (01) ==
LOC: FSGY 09:26
PROVIDERS: ATTEND Surgery
PROC: B543ZZA Ultrasonography of Right Jugular Veins, Guidance (ICD-10-PCS; principal; 2018-11-03 10:45)
PROC: 0JH60XZ Insertion of Tunneled Vascular Access Device into Chest Subcutaneous Tissue and Fascia, Open Approach (ICD-10-PCS; principal; 2018-11-03 10:45)
PROC: B51M1ZZ Fluoroscopy of Right Upper Extremity Veins using Low Osmolar Contrast (ICD-10-PCS; principal; 2018-11-03 10:45)
PROC: 02HV33Z Insertion of Infusion Device into Superior Vena Cava, Percutaneous Approach (ICD-10-PCS; principal; 2018-11-03 10:45)
DX: C56.9 Malignant neoplasm of unspecified ovary (principal); E83.42 Hypomagnesemia; D70.1 Agranulocytosis secondary to cancer chemotherapy; N28.9 Disorder of kidney and ureter, unspecified; E03.9 Hypothyroidism, unspecified; G62.9 Polyneuropathy, unspecified
CPT/HCPCS: C1788; J0690; J1642; J2250; J2704; J3010